=== PATIENT | female | born 1945 | race Caucasian/White ===

== ENCOUNTER 2019-08-31 08:30 | Emergency (ER) | payer MEDICARE ==
[~2019-08-31] VITALS: Ht 175.3 cm; Wt 69.5 kg
--- NOTE | 2019-08-31 08:47 | NUR ---
DAUGHTER YANIV [phone]
[2019-08-31 08:58] LABS: BASOPHILS # (AUTO) 0.1 X10'3 (0-0.2); BASOPHILS % (AUTO) 0.9 % (0-1); EOSINOPHILS # (AUTO) 0.1 X10'3 (0-0.9); EOSINOPHILS % (AUTO) 1.2 % (0-6); HEMATOCRIT 40.8 % (35.0-45.0); HEMOGLOBIN 13.7 g/dl (12.0-16.0); LYMPHOCYTES # (AUTO) 1.8 X10'3 (1.1-4.8); LYMPHOCYTES % (AUTO) 28.2 % (21-51); MEAN CORPUSCULAR HEMOGLOBIN 32.4 PG (27.0-31.0); MEAN CORPUSCULAR HGB CONC 33.7 g/dL (33.0-36.5); MEAN CORPUSCULAR VOLUME 96.2 FL (78-98); MEAN PLATELET VOLUME 7.2 FL (7.4-10.4); MONOCYTES # (AUTO) 0.4 X10'3 (0-0.9); MONOCYTES % (AUTO) 6.3 % (2-12); NEUTROPHILS % (AUTO) 63.4 % (42-75); PLATELET COUNT 262 X10'3 (140-440); RED BLOOD COUNT 4.24 X10'6 (4.20-5.60); RED CELL DISTRIBUTION WIDTH 13.2 % (11.5-14.5); WHITE BLOOD COUNT 6.3 X10'3 (4.5-11.0)
[2019-08-31 09:25] LABS: ALANINE AMINOTRANSFERASE 28 U/L (12-78); ALBUMIN 3.8 G/DL (3.4-5.0); ALBUMIN/GLOBULIN RATIO 1.1 (1.1-1.5); ALKALINE PHOSPHATASE 87 IU/L (46-116); ANION GAP 9 (8-16); ASPARTATE AMINO TRANSFERASE 29 U/L (10-37); BILIRUBIN,TOTAL 0.4 MG/DL (0.1-1.0); BLOOD UREA NITROGEN 15 MG/DL (7-18); BUN/CREATININE RATIO 20.5 (6.6-38.0); CALCIUM 9.1 MG/DL (8.5-10.1); CHLORIDE 106 MMOL/L (99-107); CREATININE 0.73 MG/DL (0.40-0.90); GLUCOSE 85 MG/DL (70-104); LIPASE 217 U/L (73-393); SODIUM 143 MMOL/L (135-145); TOTAL CARBON DIOXIDE 28.5 MMOL/L (24-32); TOTAL PROTEIN 7.3 G/DL (6.4-8.2); eGFR 78 ML/MIN
[2019-08-31] MEDS ORDERED: normal saline 1000ML IV soln IVB ONE (09:40)
[2019-08-31 09:48] LABS: CLARITY,URINE CLEAR (Clear); COLOR,URINE YELLOW (Yellow); GLUCOSE, URINE NEGATIVE (Neg); KETONES,URINE NEGATIVE (Neg); LEUKOCYTE ESTERASE ,URINE NEGATIVE (Neg); NITRITES, URINE NEGATIVE (Neg); OCCULT BLOOD,URINE SMALL (Neg); PROTEIN,URINE NEGATIVE (Neg); UROBILINOGEN,URINE 0.2 E.U/dL (0.2-1.0)
[2019-08-31 09:54] LABS: UA COLLECTION TYPE STRAIGHT CATH
[2019-08-31 09:56] LABS: BACTERIA,URINE NONE SEEN /HPF (Neg); MUCUS STRANDS NONE SEEN /LPF (Neg); SQUAMOUS EPITHELIAL CELL,UR FEW /LPF (FEW); WBC,URINE 0-4 /HPF (0-4)
[2019-08-31] MEDS ORDERED: iohexol 300mg/ml 100ml inj. ONE (10:18)
--- NOTE | 2019-08-31 10:51 | NUR ---
Pt taken to CT
--- NOTE | 2019-08-31 11:26 | NUR ---
vascular done with pt
[2019-08-31 13:54] VITALS: BP 167/88
== END 2019-08-31 13:56 | disposition home or self-care (01) ==
LOC: ER 08:30
DX: I82.419 Acute embolism and thrombosis of unspecified femoral vein (principal); I82.432 Acute embolism and thrombosis of left popliteal vein; R11.0 Nausea; R10.30 Lower abdominal pain, unspecified
CPT/HCPCS: 36415; 74177; 80053; 81001; 83690; 83735; 84484; 85025; 93971; 99285; J7030; Q9967

== ENCOUNTER 2019-09-10 18:28 | Emergency (ER) | payer MEDICARE ==
[~2019-09-10] VITALS: Ht 175.3 cm; Wt 69.0 kg
[2019-09-10] MEDS ORDERED: pantoprazole 40 MG vial IV ONE (20:05)
[2019-09-10] MEDS ORDERED: normal saline 1000ML IV soln IVB ONE (20:05)
[2019-09-10] MEDS ORDERED: ondansetron/PF 4mg/2ml inj IV ONE (20:05)
[2019-09-10 20:41] LABS: ALANINE AMINOTRANSFERASE 31 U/L (12-78); ALBUMIN/GLOBULIN RATIO 1.2 (1.1-1.5); ALKALINE PHOSPHATASE 84 IU/L (46-116); ANION GAP 8 (8-16); ASPARTATE AMINO TRANSFERASE 42 U/L (10-37); BILIRUBIN,TOTAL 0.5 MG/DL (0.1-1.0); BLOOD UREA NITROGEN 16 MG/DL (7-18); BUN/CREATININE RATIO 20.8 (6.6-38.0); CALCIUM 9.5 MG/DL (8.5-10.1); CHLORIDE 102 MMOL/L (99-107); CREATININE 0.77 MG/DL (0.40-0.90); GLUCOSE 89 MG/DL (70-104); LIPASE 254 U/L (73-393); POTASSIUM 4.4 MMOL/L (3.5-5.1); SODIUM 138 MMOL/L (135-145); TOTAL CARBON DIOXIDE 28.3 MMOL/L (24-32); TOTAL PROTEIN 7.3 G/DL (6.4-8.2); eGFR 74 ML/MIN
--- NOTE | 2019-09-10 21:00 | NUR ---
DR. BENDER AWARE OF PT STATING HER DAUGHTER CAN'T COME AND GET HER TONIGHT. PT STATES IT IS BEDTIME AND PT WANTS TO STAY THE NIGHT HER.
[2019-09-10 21:26] LABS: CLARITY,URINE CLEAR (Clear); COLOR,URINE YELLOW (Yellow); GLUCOSE, URINE NEGATIVE (Neg); KETONES,URINE TRACE mg/dl (Neg); LEUKOCYTE ESTERASE ,URINE NEGATIVE (Neg); NITRITES, URINE NEGATIVE (Neg); OCCULT BLOOD,URINE TRACE-INTACT (Neg); PROTEIN,URINE NEGATIVE (Neg)
[2019-09-10 21:34] LABS: UA COLLECTION TYPE STRAIGHT CATH
[2019-09-10 21:35] LABS: BACTERIA,URINE FEW /HPF (Neg); MUCUS STRANDS FEW /LPF (Neg); SQUAMOUS EPITHELIAL CELL,UR FEW /LPF (FEW); WBC,URINE 0-4 /HPF (0-4)
[2019-09-10 21:53] LABS: BASOPHILS % (AUTO) 0.5 % (0-1); EOSINOPHILS # (AUTO) 0.1 X10'3 (0-0.9); HEMATOCRIT 36.7 % (35.0-45.0); HEMOGLOBIN 12.3 g/dl (12.0-16.0); LYMPHOCYTES # (AUTO) 2.2 X10'3 (1.1-4.8); LYMPHOCYTES % (AUTO) 29.2 % (21-51); MEAN CORPUSCULAR HEMOGLOBIN 32.5 PG (27.0-31.0); MEAN CORPUSCULAR HGB CONC 33.5 g/dL (33.0-36.5); MEAN PLATELET VOLUME 6.9 FL (7.4-10.4); MONOCYTES # (AUTO) 0.6 X10'3 (0-0.9); MONOCYTES % (AUTO) 7.3 % (2-12); NEUTROPHILS # (AUTO) 4.7 X10'3 (1.8-7.7); PLATELET COUNT 260 X10'3 (140-440); RED BLOOD COUNT 3.78 X10'6 (4.20-5.60); RED CELL DISTRIBUTION WIDTH 13.5 % (11.5-14.5); WHITE BLOOD COUNT 7.7 X10'3 (4.5-11.0)
--- NOTE | 2019-09-10 22:06 | NUR ---
PT STATES SHE CAN'T GO HOME IT IS TOO LATE SHE HAS TO STAY THE NIGHT HERE.
--- NOTE | 2019-09-10 22:29 | NUR ---
CALLED A [facility] TO TAKE PT HOME. THEY WILL BE HERE IN 45 MINUTES
[2019-09-10] MEDS ORDERED: ONDA8TAB13 PO (22:37)
[2019-09-10] MEDS ORDERED: PANT-47 PO (22:37)
[2019-09-10 23:36] VITALS: BP 150/86
--- NOTE | 2019-09-10 23:41 | NUR ---
[facility]XI WAS CANCELED PT'S DAUGHTER CAME AND PICKED HER UP. PT STATED SHE CAN NOT WALK DAUGHTER YANIV SAID YES SHE CAN. PT AMBULATED TO THE CAR.
== END 2019-09-10 23:42 | disposition home or self-care (01) ==
LOC: ER 18:29
DX: R11.0 Nausea (principal); R60.0 Localized edema; R10.13 Epigastric pain; Z86.718 Personal history of other venous thrombosis and embolism; Z79.899 Other long term (current) drug therapy
CPT/HCPCS: 36415; 80053; 81001; 83690; 85025; 96374; 96375; 99285; C9113; J2405; J7030